=== PATIENT | female | born 1995 | race Caucasian/White ===

== ENCOUNTER 2017-03-07 19:30 | Emergency (ER) | payer OTHER ==
[~2017-03-07] VITALS: Ht 154.9 cm; Wt 54.9 kg
[2017-03-07 20:07] LABS: ADD MIUA? YES; BILIRUBIN NEGATIVE; BLOOD NEGATIVE; COLOR YELLOW ((YELLOW)); GLUCOSE (STRIP) NEGATIVE; KETONES 80; LEUKOCYTES MODERATE; NITRITE NEGATIVE; PROTEIN (STRIP) NEGATIVE; SPECIFIC GRAVITY 1.025 (1.000-1.030); UROBILINOGEN 0.2 MG/DL (0.2-1.0)
[2017-03-07 20:10] LABS: HEMATOCRIT 34.6 % (36.0-46.0); MCHC 34.1 G/DL (30.0-36.0); MCV 90.8 FL (83-99); MEAN PLAT.VOLUME 11.1 uM^3 (9.5-12.4); PLATELET COUNT 272 K/uL (156-360); RBC DIS.WIDTH-CV 12.1 % (11.8-14.6); RBC DIS.WIDTH-SD 39.9 % (39-53); RED BLOOD COUNT 3.81 M/uL (3.80-5.20); WHITE BLOOD COUNT 8.9 K/uL (4.1-10.2)
[2017-03-07 20:16] LABS: BACTERIA RARE /HPF; EPITHELIAL CELLS 1+ /HPF; MUCUS TRACE /LPF; RED BLOOD CELLS 0-5 /HPF (0-5); UCUL ADDED? YES
[2017-03-07 20:21] LABS: CHLORIDE 102 mEq/L (99-109); POTASSIUM 3.5 mEq/L (3.7-5.4); SODIUM 134 mEq/L (136-147)
[2017-03-07 20:23] LABS: GLUCOSE 82 mg/dL (70-99)
[2017-03-07 20:24] LABS: ANION GAP 11 MEQ/L (2-14); TOTAL BILIRUBIN 0.5 mg/dL (0.0-1.0)
[2017-03-07 20:26] LABS: ALKALINE PHOSPHATASE 54 IU/L (3-129); GFR ESTIMATE (CALCULATED) > 59 mL/min/
[2017-03-07 20:27] LABS: UREA NITROGEN (BUN) 12 mg/dL (9-23)
[2017-03-07 21:00] LABS: QUANTITATIVE HCG 61350.8 MIU/ML
[2017-03-07 22:42] VITALS: BP 99/55
== END 2017-03-07 22:49 | disposition home or self-care (01) ==
LOC: EME 19:30
DX: O26.891 Other specified pregnancy related conditions, first trimester (principal); R10.9 Unspecified abdominal pain; Z3A.01 Less than 8 weeks gestation of pregnancy
CPT/HCPCS: 76801; 80053; 81003; 84702; 85027; 87086; 99281; 99284

== ENCOUNTER 2017-10-27 15:22 | Outpatient (CLI) | payer OTHER ==
[~2017-10-27] VITALS: Ht 157.5 cm; Wt 74.0 kg
[2017-10-27 15:39] VITALS: BP 115/83
[2017-10-27 15:56] VITALS: BP 119/79
[2017-10-27] MEDS ORDERED: FLINTSTONES M300 MCG PO (15:56)
[2017-10-27 16:10] VITALS: BP 110/70
[2017-10-27 16:12] LABS: BASOPHIL (%) 0.3 % (0-1); EOSINOPHIL (%) 0.3 % (0-5); HEMATOCRIT 32.1 % (36.0-46.0); HEMOGLOBIN 10.8 G/DL (11.9-15.5); IMMATURE GRANULOCYTE (%) 0.8 % (0.0-0.7); LYMPHOCYTE (%) 13.4 % (15-42); LYMPHOCYTE COUNT 1.5 K/uL (1.0-2.8); MCHC 33.6 G/DL (30.0-36.0); MCV 92.2 FL (83-99); MONOCYTE (%) 11.8 % (3-12); MONOCYTE COUNT 1.3 K/uL (0-0.8); NEUTROPHIL (%) 73.4 % (45-76); NEUTROPHIL COUNT 8.2 K/uL (1.8-6.4); PLATELET COUNT 210 K/uL (156-360); RBC DIS.WIDTH-CV 13.9 % (11.8-14.6); RBC DIS.WIDTH-SD 46.7 % (39-53); RED BLOOD COUNT 3.48 M/uL (3.80-5.20); WHITE BLOOD COUNT 11.2 K/uL (4.1-10.2)
[2017-10-27 16:23] LABS: ALBUMIN 3.4 G/DL (3.2-4.8); CHLORIDE 105 MEQ/L (99-109); POTASSIUM 4.1 MEQ/L (3.7-5.4); SODIUM 137 MEQ/L (136-147); TOTAL BILIRUBIN 0.2 MG/DL (0.0-1.0)
[2017-10-27 16:25] VITALS: BP 110/74
[2017-10-27 16:29] LABS: ALKALINE PHOSPHATASE 183 IU/L (3-129); ALT (GPT) 7 IU/L (3-49); AST (GOT) 12 IU/L (2-34); CREATININE 0.5 MG/DL (0.6-1.3); GFR ESTIMATE (CALCULATED) > 59 mL/min/; GLUCOSE 92 mg/dL (70-99); TOTAL PROTEIN 6.5 G/DL (6.4-8.3); UREA NITROGEN (BUN) 7 mg/dL (9-23)
== END 2017-10-27 17:25 | disposition home or self-care (01) ==
LOC: LDRP-OP 15:22 → 2WEST 15:24 → LDRP-OP 11-26 09:34
PROVIDERS: Advanced Practice Midwife
DX: O13.3 Gestational [pregnancy-induced] hypertension without significant proteinuria, third trimester (principal); O26.893 Other specified pregnancy related conditions, third trimester; H53.459 Other localized visual field defect, unspecified eye; Z3A.40 40 weeks gestation of pregnancy
CPT/HCPCS: 59025; 80053; 82570; 84156; 85025; G0378

== ENCOUNTER 2017-10-31 08:58 | Inpatient (IN) | payer OTHER ==
[2017-10-31] VITALS (15 sets, daily range): BP systolic 114–140; BP diastolic 64–83
[~2017-10-31] VITALS: Ht 157.5 cm; Wt 75.3 kg
[~2017-10-31 08:58] MED LIST: FLINTSTONES M300 MCG PO
[2017-10-31 10:20] LABS: BASOPHIL (%) 0.4 % (0-1); BASOPHIL COUNT 0.1 K/uL (0-0.1); EOSINOPHIL (%) 0.1 % (0-5); HEMATOCRIT 34.3 % (36.0-46.0); HEMOGLOBIN 11.2 G/DL (11.9-15.5); IMMATURE GRANULOCYTE (%) 0.9 % (0.0-0.7); LYMPHOCYTE (%) 11.8 % (15-42); LYMPHOCYTE COUNT 1.6 K/uL (1.0-2.8); MCH 30.4 PG (29.0-34.0); MCHC 32.7 G/DL (30.0-36.0); MONOCYTE (%) 9.1 % (3-12); MONOCYTE COUNT 1.2 K/uL (0-0.8); NEUTROPHIL (%) 77.7 % (45-76); NEUTROPHIL COUNT 10.6 K/uL (1.8-6.4); PLATELET COUNT 213 K/uL (156-360); RBC DIS.WIDTH-CV 14.1 % (11.8-14.6); RBC DIS.WIDTH-SD 47.9 % (39-53); RED BLOOD COUNT 3.69 M/uL (3.80-5.20); WHITE BLOOD COUNT 13.6 K/uL (4.1-10.2)
[2017-10-31 10:52] LABS: AMPHETAMINE NEGATIVE (500 ng/mL); BARBITURATES NEGATIVE (200 ng/mL); BENZODIAZEPINES NEGATIVE (150 ng/mL); BUPRENORPHINE NEGATIVE (10 ng/mL); COCAINE NEGATIVE (150 ng/mL); METHADONE NEGATIVE (200 ng/mL); METHAMPHETAMINE NEGATIVE (500 ng/mL); OPIATES (MORPHINE) NEGATIVE (100 ng/mL); OXYCODONE NEGATIVE (100 ng/mL); PHENCYCLIDINE NEGATIVE (25 ng/mL); PROPOXYPHENE NEGATIVE (300 ng/mL); THC CANNABINOIDS NEGATIVE (50 ng/mL); TRICYCLIC ANTIDEPRESSANTS NEGATIVE (300 ng/mL)
[2017-11-01 06:37] LABS: BASOPHIL (%) 0.2 % (0-1); EOSINOPHIL (%) 0.1 % (0-5); HEMATOCRIT 30.7 % (36.0-46.0); IMMATURE GRANULOCYTE (%) 0.9 % (0.0-0.7); LYMPHOCYTE (%) 14.1 % (15-42); LYMPHOCYTE COUNT 2.7 K/uL (1.0-2.8); MCH 30.1 PG (29.0-34.0); MCHC 32.6 G/DL (30.0-36.0); MCV 92.5 FL (83-99); MONOCYTE (%) 9.5 % (3-12); MONOCYTE COUNT 1.8 K/uL (0-0.8); NEUTROPHIL (%) 75.2 % (45-76); NEUTROPHIL COUNT 14.2 K/uL (1.8-6.4); PLATELET COUNT 232 K/uL (156-360); RBC DIS.WIDTH-CV 14.3 % (11.8-14.6); RBC DIS.WIDTH-SD 48.3 % (39-53); RED BLOOD COUNT 3.32 M/uL (3.80-5.20); WHITE BLOOD COUNT 18.9 K/uL (4.1-10.2)
[2017-11-01 21:52] VITALS: BP 106/70
[2017-11-02 07:18] VITALS: BP 111/64
[2017-11-02] MEDS ORDERED: IBUPROFEN100 MG/52 PO (10:27)
[2017-11-02 15:29] VITALS: BP 121/75
== END 2017-11-02 18:52 | disposition home or self-care (01) | DRG 774 ==
LOC: LDRP-OP 08:58 → 2WEST 08:59 → LDRP-OP 11-26 17:39
PROVIDERS: Advanced Practice Midwife; Nurse Practitioner
PROC: 10E0XZZ Delivery of Products of Conception, External Approach (ICD-10-PCS; principal; 2017-10-31)
DX: O40.3XX0 Polyhydramnios, third trimester, not applicable or unspecified (principal); J18.9 Pneumonia, unspecified organism; O75.3 Other infection during labor; O99.52 Diseases of the respiratory system complicating childbirth; O99.02 Anemia complicating childbirth; J40 Bronchitis, not specified as acute or chronic; Z37.0 Single live birth; Z3A.40 40 weeks gestation of pregnancy; Z87.440 Personal history of urinary (tract) infections; O77.0 Labor and delivery complicated by meconium in amniotic fluid; D50.9 Iron deficiency anemia, unspecified; O69.81X0 Labor and delivery complicated by cord around neck, without compression, not applicable or unspecified
CPT/HCPCS: 85025; J7120